=== PATIENT | female | born 1940 | race Caucasian/White ===

== ENCOUNTER 2017-10-30 11:49 | Inpatient (IN) ==
--- NOTE | 2017-10-30 12:21 | Emergency Department Note ---
Disposition Clinical Impression: Atrial fibrillation with rapid ventricular response Disposition: Admitted As Inpatient Condition: Good Referrals: Karthik Pino MD [Primary Care Provider] - Forms: ED Satisfaction Letter Time of Disposition: 14:39 Arrhythmia/Palpitations HPI - General Chief Complaint: ED Arrhythmia/Palpitations Stated Complaint: A-fib & hx of for long -time Time Seen by Provider: 10/30/17 11:56 Source: patient, family () Mode of arrival: ambulatory Limitations: no limitations Nursing Notes Reviewed: Yes Vital Signs Reviewed: Yes - History of Present Illness HPI Narrative: 77-year-old female history of atrial fibrillation on Xarelto presents emergency department with atrial fibrillation with rapid ventricular response. Patient was seen at the pulmonology office Dr. Anaya for evaluation of her COPD. Patient states when she was doing her a 6 minute walk test, the heart rate was elevated and patient was determined to be in atrial fibrillation with rapid ventricular response. Patient was sent here for further evaluation. Patient states over the past several months she is been feeling more short of breath especially on exertion. She does not feel sure breath at rest. She did have her inhalers changed to Symbicort. She recently states being evaluated by her primary care physician Dr. Alvarez bryant her metoprolol was discontinued on Wednesday but was switched to another medication. Believes it could be diltiazem. She denies any fevers, recent illness. Denies any chest pain, heart racing or lightheadedness. States prior to being placed on the Xarelto she used to know when she goes in and out of atrial fibrillation but not recently. Patient does have a history of hypothyroidism after ablation and takes appropriate medication. She gets it checked on a yearly basis. Denies any other changes to medications. Denies any recent injury or false. Denies alcohol use. Denies history of congestive heart failure. Patient's petroleum transport driver was Dr. Holt but has not seen him since he left the practice. Pt Subjective Complaint: atrial fibrillation - Related Data Home Medications Medication Instructions Recorded Confirmed Atorvastatin Calcium [Lipitor] 20 mg PO HS 10/30/17 10/30/17 Budesonide/Formoterol 160/4.5 2 puff IH BIDR 10/30/17 10/30/17 [Symbicort 160/4.5] Citalopram Hydrobromide 20 mg PO DAILY 10/30/17 10/30/17 [Citalopram HBr] Diltiazem CD (24hr) [Cardizem CD] 120 mg PO DAILY 10/30/17 10/30/17 Enalapril Maleate [Vasotec] 20 mg PO BID 10/30/17 10/30/17 Levothyroxine Sodium [Levoxyl] 100 mcg PO DAILY 10/30/17 10/30/17 Rivaroxaban [Xarelto] 15 mg PO DAILY 10/30/17 10/30/17 hydroCHLOROthiazide 25 mg PO DAILY 10/30/17 10/30/17 [Hydrochlorothiazide] Allergies Allergy/AdvReac Type Severity Reaction Status Date / Time No Known Allergies Allergy Verified 10/30/17 11:51 All systems ED: reviewed and negative except as stated. Review of Systems: As Per HPI Constitutional: Denies: fever, chills, weakness Cardiovascular: Reports: dyspnea on exertion. Denies: chest pain, palpitations Respiratory: Reports: dyspnea. Denies: cough Gastrointestinal: Denies: abdominal pain, nausea, vomiting Past Medical History - Past Medical History Attestation: Yes The following information was validated with the patient. Source: patient Medical history: Reports: COPD, hypertension - Social History Smoking Status: Never smoker Smokeless Tobacco Status: No Alcohol use: Reports: none Drug use: Reports: none Physical Exam - General Limitations: no limitations General appearance: alert, in no apparent distress - Head Head exam: atraumatic, normocephalic, normal inspection - Eye Eye exam: Present: normal appearance, PERRL, EOMI. Absent: scleral icterus - ENT ENT exam: normal exam, normal oropharynx, mucous membranes moist - Neck Neck exam: Present: normal inspection, full ROM, trachea midline. Absent: tenderness - Chest Chest inspection: Present: normal inspection, symmetric chest wall rise. Absent : tenderness, rash - Respiratory Respiratory exam: Present: normal lung sounds bilaterally. Absent: respiratory distress, wheezes - Cardiovascular Cardiovascular exam: Present: tachycardia, irregular rhythm, normal heart sounds - Expanded Cardiovascular Exam Peripheral pulses: 2+: radial (R), radial (L) - Abdominal Exam Abdominal exam: Present: soft, Non-Tender, normal bowel sounds. Absent: tenderness, distention, guarding, rebound, rigidity - Extremities Exam Extremities exam: Present: normal inspection, full ROM, normal capillary refill. Absent: tenderness, pedal edema, calf tenderness - Back Exam Back exam: Present: normal inspection, full ROM. Absent: tenderness - Neurological Exam Neurological exam: Present: alert, oriented X3 - Psychiatric Psychiatric exam: Present: normal affect, normal mood - Skin Skin exam: Present: warm, dry, intact, normal color. Absent: rash, cyanosis, diaphoresis Course Course Narrative: Patient presents with history of atrial fibrillation. Was at the pulmonology office and was found to be and atrial fibrillation with rapid ventricular response. EKG confirm that here. Patient denies any other symptoms such as lightheadedness, chest pain, shortness of breath. She does have a history of a thyroid issues. Will check labs in a TSH as well as treatment with Cardizem. - Reevaluation(s) Reevaluation #1: Magnesium was slightly low 1.5. TSH 2.7. Baseline renal insufficiency. No leukocytosis. Patient was given bolus of Cardizem and are heart rate went from 150 down to roughly 80. She remains and atrial fibrillation. Will replete her magnesium and admit her for further evaluation and management. Impression is atrial fibrillation with rapid ventricular response. Patient is are anticoagulated on Xarelto and does not require any additional. INR is 1.7. Time: 14:34 - Consultations Consultation #1: Spoke with on-call hospitalist martine Rodrigez to admit for afib c RVR. No further orders at this time Time: 14:37 Vital Signs Temperature 98.1 F 10/30/17 11:51 Pulse Rate 144 10/30/17 11:51 Respiratory Rate 20 10/30/17 11:51 Blood Pressure 162/108 10/30/17 11:51 O2 Sat by Pulse Oximetry 97 10/30/17 11:51 Temperature 98.1 F 10/30/17 12:24 Pulse Rate 94 10/30/17 14:16 Respiratory Rate 20 10/30/17 14:16 Blood Pressure 179/106 10/30/17 14:16 O2 Sat by Pulse Oximetry 94 10/30/17 14:16 Oxygen Delivery Oxygen Delivery Room Air Arrhythmia/Palpitations - MDM Narrative Medical decision making narrative: Patient was discussed with my attending physician who agrees with ED management and final disposition. They independently evaluated the patient. Please refer to their attestation to this encounter for additional information. This note was generated by Dragon voice recognition software and as a result grammatical or spelling errors may occur using this program. - Medical Records Medical records reviewed: Yes I reviewed the patient's medical records. - Lab Data Lab results reviewed: Yes I reviewed the patient's lab results. Result diagrams: 10/30/17 12:15 10/30/17 12:15 Lab Results 10/30/17 10/30/17 10/30/17 Range/Units 12:15 12:15 12:15 WBC 4.9 (4.3-11.1) K/mcL RBC 4.46 (3.82-4.97) M/mcL Hgb 14.2 (11.5-15.4) g/dL Hct 42.1 (35.3-44.9) % MCV 94.4 (83.0-100.0) fL MCH 31.8 (28.0-33.3) pg MCHC 33.7 (31.6-35.5) g/dL RDW 13.9 (11.5-14.5) % Plt Count 188 (140-400) K/mcL MPV 11.4 (9.4-12.4) fL Immature Gran % 0.2 (0-4) % Seg Neutrophils % 71.5 % Lymphocytes % 17.8 % Monocytes % 7.0 % Eosinophils % 3.3 % Basophils % 0.2 % Neutrophils # 3.5 (1.6-8.9) K/mcL Lymphocytes # 0.9 (0.6-4.6) K/mcL Monocytes # 0.3 (0.0-1.3) K/mcL Eosinophils # 0.2 (0.0-0.6) K/mcL Basophils # 0.0 (0.0-0.2) K/mcL PT 18.4 H (9.4-12.1) Seconds INR 1.7 APTT 40.7 H (26.0-36.0) Seconds Sodium 139 (136-145) mEq/L Potassium 3.9 (3.5-5.1) mEq/L Chloride 102 (98-107) mEq/L Carbon Dioxide 26 (23-29) mEq/L BUN 17 (8-23) mg/dL Creatinine 1.25 H (0.60-1.20) mg/dL Est GFR ( Amer) 50 L (> 60) Est GFR (Non-Af Amer) 41 L (> 60) BUN/Creatinine Ratio 14 (6-26) Glucose 166 H (70-105) mg/dL Calculated Osmolality 293 (280-300) Calcium 9.3 (8.6-10.3) mg/dL Magnesium 1.5 L (1.6-2.6) mg/dL Troponin I < 0.03 (< 0.04) ng/mL TSH 2.758 (0.340-5.600) mcIU/mL Urine Color (Yellow) Urine Clarity (Clear) Urine pH (5.0-8.0) pH Units Ur Specific [place] (1.010-1.025) Urine Protein (Neg-Trace) mg/dL Urine Glucose (UA) (Normal) mg/dL Urine Ketones (Negative) mg/dL Urine Blood (Negative) Urine Nitrite (Negative) Urine Bilirubin (Negative) Urine Urobilinogen (Normal) mg/dL Ur Leukocyte Esterase (Negative) Urine Microscopic RBC (0-3) per hpf Urine Microscopic WBC (0-3) per hpf Ur Squamous Epith Cells (None-Few) per lpf Urine Bacteria (None-Few) per hpf Ur Culture Indicated? (NO) 10/30/17 Range/Units 12:37 WBC (4.3-11.1) K/mcL RBC (3.82-4.97) M/mcL Hgb (11.5-15.4) g/dL Hct (35.3-44.9) % MCV (83.0-100.0) fL MCH (28.0-33.3) pg MCHC (31.6-35.5) g/dL RDW (11.5-14.5) % Plt Count (140-400) K/mcL MPV (9.4-12.4) fL Immature Gran % (0-4) % Seg Neutrophils % % Lymphocytes % % Monocytes % % Eosinophils % % Basophils % % Neutrophils # (1.6-8.9) K/mcL Lymphocytes # (0.6-4.6) K/mcL Monocytes # (0.0-1.3) K/mcL Eosinophils # (0.0-0.6) K/mcL Basophils # (0.0-0.2) K/mcL PT (9.4-12.1) Seconds INR APTT (26.0-36.0) Seconds Sodium (136-145) mEq/L Potassium (3.5-5.1) mEq/L Chloride (98-107) mEq/L Carbon Dioxide (23-29) mEq/L BUN (8-23) mg/dL Creatinine (0.60-1.20) mg/dL Est GFR ( Amer) (> 60) Est GFR (Non-Af Amer) (> 60) BUN/Creatinine Ratio (6-26) Glucose (70-105) mg/dL Calculated Osmolality (280-300) Calcium (8.6-10.3) mg/dL Magnesium (1.6-2.6) mg/dL Troponin I (< 0.04) ng/mL TSH (0.340-5.600) mcIU/mL Urine Color Dark Yellow (Yellow) Urine Clarity Cloudy A (Clear) Urine pH 6.0 (5.0-8.0) pH Units Ur Specific [place] 1.022 (1.010-1.025) Urine Protein 100 H (Neg-Trace) mg/dL Urine Glucose (UA) Normal (Normal) mg/dL Urine Ketones Trace H (Negative) mg/dL Urine Blood Negative (Negative) Urine Nitrite Negative (Negative) Urine Bilirubin Small H (Negative) Urine Urobilinogen Normal (Normal) mg/dL Ur Leukocyte Esterase Moderate H (Negative) Urine Microscopic RBC 0-3 (0-3) per hpf Urine Microscopic WBC TNTC H (0-3) per hpf Ur Squamous Epith Cells Many H (None-Few) per lpf Urine Bacteria None Seen (None-Few) per hpf Ur Culture Indicated? NO. A (NO) - Radiology Data Radiology results reviewed: Yes I reviewed the patient's radiology results. Chest X-Ray 10/30/17 12:05 IMPRESSION: Stable portable study. D/ / Chely Farr Cha, MD / Chely Farr Cha, MD Interpreting Provider: Chely Farr Cha, MD - EKG Data EKG attestation: Yes I reviewed and interpreted this EKG. EKG results narrative: EKG performed 1210 atrial fibrillation with rapid ventricular response 138 beats per minute, no ST elevation or depression. No acute ischemic changes. Attestation Statement - Attestation Attestation: I, Jorge Clement DO, examined this patient [id number] and my medical decision-making was reviewed with Michael Bello DO , Resident Physician. I agree with the documented findings, disposition and treatment plan as described except to the extent set forth below. Please see my progress notes for details.
[2017-10-30 12:24] LABS: Basophils % 0.2 %; Eosinophils # 0.2 K/mcL (0.0-0.6); Eosinophils % 3.3 %; Hematocrit 42.1 % (35.3-44.9); Hemoglobin 14.2 g/dL (11.5-15.4); Immature Granulocytes % 0.2 % (0-4); Lymphocytes # 0.9 K/mcL (0.6-4.6); Lymphocytes % 17.8 %; Mean Corpuscular HGB Conc 33.7 g/dL (31.6-35.5); Mean Corpuscular Hemoglobin 31.8 pg (28.0-33.3); Mean Corpuscular Volume 94.4 fL (83.0-100.0); Mean Platelet Volume 11.4 fL (9.4-12.4); Monocytes # 0.3 K/mcL (0.0-1.3); Neutrophils # 3.5 K/mcL (1.6-8.9); Platelet Count 188 K/mcL (140-400); Red Blood Count 4.46 M/mcL (3.82-4.97); Red Cell Distribution Width 13.9 % (11.5-14.5); Segmented Neutrophils % 71.5 %
[2017-10-30 12:29] LABS: INR 1.7; Prothrombin Time 18.4 Seconds (9.4-12.1)
[2017-10-30 12:32] LABS: Activated Partial Thrombo Time 40.7 Seconds (26.0-36.0)
[2017-10-30 12:57] LABS: Bilirubin,Urine Small (Negative); Blood,Urine Negative (Negative); Clarity,Urine Cloudy (Clear); Color,Urine Dark Yellow (Yellow); Glucose,Urine (UA) Normal (Normal); Ketones,Urine Trace mg/dL (Negative); Leukocyte Esterase,Urine Moderate (Negative); Nitrite,Urine Negative (Negative); Protein,Urine 100 mg/dL (Neg-Trace); Specific Gravity,Urine 1.022 (1.010-1.025); Urobilinogen,Urine Normal (Normal)
[2017-10-30 13:00] LABS: Bacteria,Urine None Seen per hpf (None-Few); Squamous Epithelial Cell,Urine Many per lpf (None-Few); WBC,Urine TNTC per hpf (0-3)
[2017-10-30 13:01] LABS: Blood Urea Nitrogen 17 mg/dL (8-23); Calcium 9.3 mg/dL (8.6-10.3); Chloride 102 mEq/L (98-107); Glucose 166 mg/dL (70-105); Osmolality,Calculated 293 (280-300); Potassium 3.9 mEq/L (3.5-5.1); Sodium 139 mEq/L (136-145); Thyroid Stimulating Hormone 2.758 mcIU/mL (0.340-5.600); Troponin I < 0.03 ng/mL (< 0.04)
[2017-10-30 13:18] LABS: BUN/Creatinine Ratio 14 (6-26); Carbon Dioxide 26 mEq/L (23-29); Magnesium 1.5 mg/dL (1.6-2.6); eGFR For African Americans 50 (> 60); eGFR For Non-African Americans 41 (> 60)
[2017-10-30 13:18] LABS: RBC,Urine 0-3 per hpf (0-3)
--- NOTE | 2017-10-30 14:04 | Emergency Department Note ---
Disposition Clinical Impression: Atrial fibrillation with rapid ventricular response Disposition: Admitted As Inpatient Condition: Good Referrals: Karthik Pino MD [Primary Care Provider] - Forms: ED Satisfaction Letter Time of Disposition: 14:59 General Adult HPI - General Chief complaint: ED Arrhythmia/Palpitations Stated complaint: A-fib & hx of for long -time Time Seen by Provider: 10/30/17 11:56 Source: patient, family () Mode of arrival: ambulatory Limitations: no limitations - History of Present Illness Pain Scale: 0 - Related Data Home Medications Medication Instructions Recorded Confirmed Atorvastatin Calcium [Lipitor] 20 mg PO HS 10/30/17 10/30/17 Budesonide/Formoterol 160/4.5 2 puff IH BIDR 10/30/17 10/30/17 [Symbicort 160/4.5] Citalopram Hydrobromide 20 mg PO DAILY 10/30/17 10/30/17 [Citalopram HBr] Diltiazem CD (24hr) [Cardizem CD] 120 mg PO DAILY 10/30/17 10/30/17 Enalapril Maleate [Vasotec] 20 mg PO BID 10/30/17 10/30/17 Levothyroxine Sodium [Levoxyl] 100 mcg PO DAILY 10/30/17 10/30/17 Rivaroxaban [Xarelto] 15 mg PO DAILY 10/30/17 10/30/17 hydroCHLOROthiazide 25 mg PO DAILY 10/30/17 10/30/17 [Hydrochlorothiazide] Allergies Allergy/AdvReac Type Severity Reaction Status Date / Time No Known Allergies Allergy Verified 10/30/17 11:51 Constitutional: Denies: fever, chills, weakness Cardiovascular: Reports: dyspnea on exertion. Denies: chest pain, palpitations Respiratory: Reports: dyspnea. Denies: cough Gastrointestinal: Denies: abdominal pain, nausea, vomiting Past Medical History - Past Medical History Medical history: Reports: COPD, hypertension Psychiatric history: Reports: no psych history - Social History Smoking Status: Never smoker Smokeless Tobacco Status: No Alcohol use: Reports: none Drug use: Reports: none Physical Exam - General Limitations: no limitations General appearance: alert, in no apparent distress Course Vital Signs Temperature 98.1 F 10/30/17 11:51 Pulse Rate 144 10/30/17 11:51 Respiratory Rate 20 10/30/17 11:51 Blood Pressure 162/108 10/30/17 11:51 O2 Sat by Pulse Oximetry 97 10/30/17 11:51 Temperature 98.1 F 10/30/17 12:24 Pulse Rate 94 10/30/17 14:16 Respiratory Rate 20 10/30/17 14:16 Blood Pressure 179/106 10/30/17 14:16 O2 Sat by Pulse Oximetry 94 10/30/17 14:16 Oxygen Delivery Oxygen Delivery Room Air Medical Decision Making - Lab Data Result diagrams: 10/30/17 12:15 10/30/17 12:15 Lab Results 10/30/17 10/30/17 10/30/17 Range/Units 12:15 12:15 12:15 WBC 4.9 (4.3-11.1) K/mcL RBC 4.46 (3.82-4.97) M/mcL Hgb 14.2 (11.5-15.4) g/dL Hct 42.1 (35.3-44.9) % MCV 94.4 (83.0-100.0) fL MCH 31.8 (28.0-33.3) pg MCHC 33.7 (31.6-35.5) g/dL RDW 13.9 (11.5-14.5) % Plt Count 188 (140-400) K/mcL MPV 11.4 (9.4-12.4) fL Immature Gran % 0.2 (0-4) % Seg Neutrophils % 71.5 % Lymphocytes % 17.8 % Monocytes % 7.0 % Eosinophils % 3.3 % Basophils % 0.2 % Neutrophils # 3.5 (1.6-8.9) K/mcL Lymphocytes # 0.9 (0.6-4.6) K/mcL Monocytes # 0.3 (0.0-1.3) K/mcL Eosinophils # 0.2 (0.0-0.6) K/mcL Basophils # 0.0 (0.0-0.2) K/mcL PT 18.4 H (9.4-12.1) Seconds INR 1.7 APTT 40.7 H (26.0-36.0) Seconds Sodium 139 (136-145) mEq/L Potassium 3.9 (3.5-5.1) mEq/L Chloride 102 (98-107) mEq/L Carbon Dioxide 26 (23-29) mEq/L BUN 17 (8-23) mg/dL Creatinine 1.25 H (0.60-1.20) mg/dL Est GFR ( Amer) 50 L (> 60) Est GFR (Non-Af Amer) 41 L (> 60) BUN/Creatinine Ratio 14 (6-26) Glucose 166 H (70-105) mg/dL Calculated Osmolality 293 (280-300) Calcium 9.3 (8.6-10.3) mg/dL Magnesium 1.5 L (1.6-2.6) mg/dL Troponin I < 0.03 (< 0.04) ng/mL TSH 2.758 (0.340-5.600) mcIU/mL Urine Color (Yellow) Urine Clarity (Clear) Urine pH (5.0-8.0) pH Units Ur Specific [place] (1.010-1.025) Urine Protein (Neg-Trace) mg/dL Urine Glucose (UA) (Normal) mg/dL Urine Ketones (Negative) mg/dL Urine Blood (Negative) Urine Nitrite (Negative) Urine Bilirubin (Negative) Urine Urobilinogen (Normal) mg/dL Ur Leukocyte Esterase (Negative) Urine Microscopic RBC (0-3) per hpf Urine Microscopic WBC (0-3) per hpf Ur Squamous Epith Cells (None-Few) per lpf Urine Bacteria (None-Few) per hpf Ur Culture Indicated? (NO) 10/30/17 Range/Units 12:37 WBC (4.3-11.1) K/mcL RBC (3.82-4.97) M/mcL Hgb (11.5-15.4) g/dL Hct (35.3-44.9) % MCV (83.0-100.0) fL MCH (28.0-33.3) pg MCHC (31.6-35.5) g/dL RDW (11.5-14.5) % Plt Count (140-400) K/mcL MPV (9.4-12.4) fL Immature Gran % (0-4) % Seg Neutrophils % % Lymphocytes % % Monocytes % % Eosinophils % % Basophils % % Neutrophils # (1.6-8.9) K/mcL Lymphocytes # (0.6-4.6) K/mcL Monocytes # (0.0-1.3) K/mcL Eosinophils # (0.0-0.6) K/mcL Basophils # (0.0-0.2) K/mcL PT (9.4-12.1) Seconds INR APTT (26.0-36.0) Seconds Sodium (136-145) mEq/L Potassium (3.5-5.1) mEq/L Chloride (98-107) mEq/L Carbon Dioxide (23-29) mEq/L BUN (8-23) mg/dL Creatinine (0.60-1.20) mg/dL Est GFR ( Amer) (> 60) Est GFR (Non-Af Amer) (> 60) BUN/Creatinine Ratio (6-26) Glucose (70-105) mg/dL Calculated Osmolality (280-300) Calcium (8.6-10.3) mg/dL Magnesium (1.6-2.6) mg/dL Troponin I (< 0.04) ng/mL TSH (0.340-5.600) mcIU/mL Urine Color Dark Yellow (Yellow) Urine Clarity Cloudy A (Clear) Urine pH 6.0 (5.0-8.0) pH Units Ur Specific [place] 1.022 (1.010-1.025) Urine Protein 100 H (Neg-Trace) mg/dL Urine Glucose (UA) Normal (Normal) mg/dL Urine Ketones Trace H (Negative) mg/dL Urine Blood Negative (Negative) Urine Nitrite Negative (Negative) Urine Bilirubin Small H (Negative) Urine Urobilinogen Normal (Normal) mg/dL Ur Leukocyte Esterase Moderate H (Negative) Urine Microscopic RBC 0-3 (0-3) per hpf Urine Microscopic WBC TNTC H (0-3) per hpf Ur Squamous Epith Cells Many H (None-Few) per lpf Urine Bacteria None Seen (None-Few) per hpf Ur Culture Indicated? NO. A (NO) Critical Care Time Critical Care Time: Yes Total Critical Care Time: 35 Attestation: Critical care performed: Time is exclusive of separately billable procedures. Time includes: direct patient care, patient reassessment, coordination of patient care, interpretation of data (laboratory data, radiology data, and respiratory data), review of patient's medical records, medical consultation and documentation of patient care. Procedures included in critical care time: Procedures excluded from critical care time: Attestation Statement - Attestation Attestation: I, Jorge Clement DO, examined this patient [id number] and my medical decision-making was reviewed with Michael Bello DO , Resident Physician. I agree with the documented findings, disposition and treatment plan as described except to the extent set forth below. Please see my progress notes for details. 77-year-old female sent in from pulmonology Center today for evaluation of atrial fibrillation with rapid ventricular response. Patient is a long- standing history of A. fib. She is currently on's relative. She was followed up with by the [facility] and she denies any chest pain shortness of breath headache vision changes nausea vomiting or diarrhea. Denies any fevers or chills trauma or injury. Patient was seen by her primary care provider within the week and had 2 of her medications changed. Since then she has not had any complaints or issues. She went in for evaluation today for a previous diagnosis of COPD and when they went to check her vital signs are heart rate was in the 132 140 bpm range. They advised her to come over the emergency room for evaluation of that time. On presentation here patient is asymptomatic her vital signs are stable outside of the tachycardia. EKG confirms atrial fibrillation with rapid ventricular response. There is no acute signs of ST segment elevation or abnormality. Vital signs are stable. Patient was screening labs including chest x-ray CBC chemistry as well as review the patient's previous echocardiogram from one year ago. She will be started on Cardizem admitted to the hospital. Patient does have Xarelto on board at this time and does not require any further anticoagulation. Patient is otherwise asymptomatic. See detailed documentation of the physical exam, medical intervention, medical decision-making and disposition the resident physician's note. 35 minutes of critical care by the patient's treatment course secondary to medical intervention. Patient's lungs are clear heart is regular and tachycardia abdomen is soft nontender nondistended no guarding or rigidity. Patient has no visible signs of pitting edema or swelling in extremities. She converses without any shortness of breath and shows no neurologic deficits. Admission process to be completed once full workup has been established 1400 Patient's heart rate has responded to the medications. Heart rate is down in the 80s at this time. Labs appear to be stable. Patient does have contaminated urine no antibiotic regimen require this time. Admission process to be completed 1500 Patient acceptable by the hospitals. Magnesium was repleted here. Otherwise workup was unremarkable. Patient is in stable medical condition at the time of admission for atrial fibrillation with rapid ventricular spots. No other recommendations from the hospitalist.
[2017-10-30] MEDS ORDERED: Acetaminophen 325 MG TABLET PO PRN (14:52)
[2017-10-30] MEDS ORDERED: traMADol 50 MG TABLET PO PRN (14:52)
[2017-10-30] MEDS ORDERED: D5% in Water 1,000 ML IVC PRN (14:52)
[2017-10-30] MEDS ORDERED: Naloxone 0.4 MG/ML INJ IVP PRN (14:52)
[2017-10-30] MEDS ORDERED: *HR* Dextrose 50 % in Water (Syg) 50 ML SYRINGE IVP PRN (14:52)
[2017-10-30] MEDS ORDERED: Dextrose Gel 15 GM/37.5 ML TUBE PO PRN ×2 (14:52)
--- NOTE | 2017-10-30 14:59 | Internal Med History&Physical ---
Date of Encounter: 10/30/17 Time of Encounter: 14:56 Internal Medicine - H&P: HPI Chief complaint: Elevated heart rate Admitted From: Emergency Dept History of present illness: Ms. Hancock is a 77 year old female with a past medical history of atrial fibrillation on xarelto, COPD not oxygen dependent, who was recommended by her primary care physician to stop taking metoprolol Wednesday and was started on a new medication possibly diltiazem. Patient was having 6 minute walk test today and she was told that her heart rate was very high in the 150s. At the emergency room she was noticed to be in atrial fibrillation with rapid ventricular response with a heart rate of 156. Patient was completely asymptomatic, mentions that she had acute bronchitis about 3 weeks ago, UA shows too numerous to count white blood cells but has minimal dysuria, creatinine is 1.25 close to her baseline of 1.16, magnesium was 1.5 and was given IV magnesium at the ER. She was given a bolus of IV Cardizem and continued on a drip. Her heart rate is a still in the 110s. Blood pressure was 179/101. Glucose is 166 Past Med Surg Social Fam HX - Past Medical History Medical history: atrial fibrillation (Paroxysmal atrial fibrillation on xarelto) , COPD (Not oxygen dependent), hypertension, other (Hypothyroidism, depression, hypertension, hyperlipidemia, chronic kidney disease stage III) Psychiatric history: no psych history - Past Surgical History Surgical History: other (Tubal ligation) Additional surgical history: tubal ligation - Social History Smoking Status: Former smoker Smokeless Tobacco Status: No Alcohol use: none Drug use: none - Additional Family History Additional family history: Father with CVA Internal Medicine - H&P: Meds Atorvastatin Calcium [Lipitor] 20 mg PO HS 10/30/17 [History] Budesonide/Formoterol 160/4.5 [Symbicort 160/4.5] 2 puff IH BIDR 10/30/17 [ History] Citalopram Hydrobromide [Citalopram HBr] 20 mg PO DAILY 10/30/17 [History] Diltiazem CD (24hr) [Cardizem CD] 120 mg PO DAILY 10/30/17 [History] Enalapril Maleate [Vasotec] 20 mg PO BID 10/30/17 [History] Levothyroxine Sodium [Levoxyl] 100 mcg PO DAILY 10/30/17 [History] Rivaroxaban [Xarelto] 15 mg PO DAILY 10/30/17 [History] hydroCHLOROthiazide [Hydrochlorothiazide] 25 mg PO DAILY 10/30/17 [History] 3 Allergy/AdvReac Type Severity Reaction Status Date / Time No Known Allergies Allergy Verified 10/30/17 11:51 All Systems PM: A 10-system review of systems was performed and is negative for pertinent findings except as documented above in the HPI. Review of systems: Denies any chest pressures or breath, other systems out of the 10 reviewed were negative - Constitutional Vitals: Temp Pulse Resp BP Pulse Ox 98.1 F 94 20 179/106 94 10/30/17 12:24 10/30/17 14:16 10/30/17 14:16 10/30/17 14:16 10/30/17 14:16 General appearance: Present: A&O X 3, morbidly obese - Head Head exam: Present: atraumatic, normocephalic - Eye Eye exam: Present: PERRL, conjuntiva pink, sclera anicteric Pupils: Present: PERRL - Neck Neck exam general surgery: Present: supple, trachea midline. Absent: lymphadenopathy - Respiratory Respiratory exam: Present: decreased breath sounds (Very diminished breath sounds), CTAB. Absent: accessory muscle use, rales, rhonchi, wheezes - Cardiovascular Cardiovascular exam: Present: irregular rhythm, RRR, +S1, +S2, tachycardia. Absent: diastolic murmur, gallop, rubs, systolic murmur - GI/Abdominal GI/Abdominal exam: Present: normal bowel sounds, soft, no peritoneal signs. Absent: distended, tenderness - Extremities Exam Extremities exam: Present: warm, radial pulses palpable and symmetrical. Absent : calf tenderness, cyanotic, pedal edema - Neurological Exam Neurological exam: Present: CN II-XII intact, oriented X3, no focal deficits. Absent: pronater drift, facial droop, speech deficit - Skin Skin exam: Present: dry, intact Internal Med - H&P Results - Labs CBC & Chem 7: 10/30/17 12:15 10/30/17 12:15 Labs: Short CBC 10/30/17 Range/Units 12:15 WBC 4.9 (4.3-11.1) K/mcL Hgb 14.2 (11.5-15.4) g/dL Hct 42.1 (35.3-44.9) % Plt Count 188 (140-400) K/mcL Neutrophils # 3.5 (1.6-8.9) K/mcL BMP 10/30/17 12:15 Sodium 139 Potassium 3.9 Chloride 102 Carbon Dioxide 26 BUN 17 Creatinine 1.25 H Glucose 166 H Calcium 9.3 Cardiac Enzymes 10/30/17 Range/Units 12:15 Troponin I < 0.03 (< 0.04) ng/mL Urine 10/30/17 Range/Units 12:37 Urine Color Dark Yellow (Yellow) Urine Clarity Cloudy A (Clear) Urine pH 6.0 (5.0-8.0) pH Units Ur Specific [place] 1.022 (1.010-1.025) Urine Protein 100 H (Neg-Trace) mg/dL Urine Glucose (UA) Normal (Normal) mg/dL - Impressions ITS Impressions Chest X-Ray 10/30/17 12:05 IMPRESSION: Stable portable study. D/ / Chely Farr Cha, MD / Chely Farr Cha, MD Interpreting Provider: Chely Farr Cha, MD - Assessment and plan (1) Atrial fibrillation with rapid ventricular response Current Visit: Yes Status: Acute Assessment and plan: Atrophic relation with rapid ventricular response possibly triggered by UTI and by switching medications Continue Cardizem drip, confirmed if the patient takes diltiazem and increase the dose in the morning Continue Rocephin Consider cardiology consult if not improving Omeprazole for GI prophylaxis and xarelto for DVT prophylaxis. The patient will be admitted for observation, full code. Time spent on this admission 40 minutes (2) Hyperglycemia Current Visit: Yes Status: Acute Assessment and plan: Sliding scale Check hemoglobin A1c (3) Hypomagnesemia Current Visit: Yes Status: Acute Assessment and plan: Replete and recheck in the morning (4) Hypertension Current Visit: Yes Status: Acute Assessment and plan: Accelerated hypertension Continue enalapril, order hydralazine IV as needed Continue hydrochlorothiazide Qualifiers: Hypertension type: essential hypertension Qualified Code(s): I10 - Essential (primary) hypertension (5) UTI (urinary tract infection) Current Visit: Yes Status: Acute Assessment and plan: Start Rocephin Order culture Qualifiers: Urinary tract infection type: acute cystitis Hematuria presence: without hematuria Qualified Code(s): N30.00 - Acute cystitis without hematuria - Time Spent With Patient Total time spent is greater than 50% in coordination of care (as documented) at patient's floor/unit and/or counseling patient:
[2017-10-30] MEDS: Insulin LISPRO 300 UNITS/3 ML VIAL SQ SCH ×2 (17:53→20:35)
[2017-10-30] MEDS: Magnesium Oxide 400 MG TABLET PO SCH ×2 (18:48→20:34)
[2017-10-30] MEDS: cefTRIAXone 1,000 MG in Water for inj. (sterile) 20 ML 10 ML IVP SCH (18:49)
[2017-10-30] MEDS: Budesonide/Formoterol 160/4.5 MDI IH SCH (22:09)
[2017-10-31] MEDS: Insulin LISPRO 300 UNITS/3 ML VIAL SQ SCH ×4 (08:32→22:03)
[2017-10-31] MEDS: hydroCHLOROthiazide 25 MG TABLET PO SCH (08:33)
[2017-10-31] MEDS: Magnesium Oxide 400 MG TABLET PO SCH ×2 (08:33→22:02)
[2017-10-31] MEDS: Lisinopril 20 MG TABLET PO SCH (08:34)
[2017-10-31] MEDS: cefTRIAXone 1,000 MG in Water for inj. (sterile) 20 ML 10 ML IVP SCH (08:34)
--- NOTE | 2017-10-31 09:07 | Internal Med Progress Note ---
<Nahun Gonzales - Last Filed: 10/31/17 13:14> Date of Encounter: 10/31/17 Time of Encounter: 09:07 - Assessment and plan (1) Atrial fibrillation with rapid ventricular response Current Visit: Yes Status: Acute Assessment and plan: Afib rvr likely due to medication changes. Rate this morning between 100-130s. Continue with Cardizem drip, once controlled will add Cardizem po Resume home med. Metoprolol 25mg bid. Consider switching to Toprol XL 50mg on discharge Xarelto for anticoagulation. (2) Hyperglycemia Current Visit: Yes Status: Acute Assessment and plan: A1C 7.1 Continue with insulin sliding scale (3) Hypomagnesemia Current Visit: Yes Status: Acute Assessment and plan: 1.9 on recheck after replacement. (4) Hypertension Current Visit: Yes Status: Acute Assessment and plan: Bp 140-152/85-94 Has not been taking Toprol XL, will resume beta miesha Continue enalapril home dose and HCTZ hydralazine as needed ordered Qualifiers: Hypertension type: essential hypertension Qualified Code(s): I10 - Essential (primary) hypertension (5) UTI (urinary tract infection) Current Visit: Yes Status: Acute Assessment and plan: UA was cloudy with trace ketones, moderate leukocyte esterase, and tntc wbc. Minimal dysuria. Continue Rocephin d2 Urine culture sent Qualifiers: Urinary tract infection type: acute cystitis Hematuria presence: without hematuria Qualified Code(s): N30.00 - Acute cystitis without hematuria - Time Spent With Patient Total time spent is greater than 50% in coordination of care (as documented) at patient's floor/unit and/or counseling patient: - Subjective Interval history: Ms. Hancock reports feeling a little upset, not angrily, just bummed that she is hospitalized. Patient reports that she thought she was told at her last PCP appt to discontinue her Toprol XL 50mg qd and start Cardizem; however, when she went home she was questioning when reviewing her discharge papers whether she was supposed to continue or discontinue her Toprol. Patient's only symptoms at the time the afib rvr was found was shortness of breath, no chest pain, no palpitations. Shortness of breath improved from admission, but still present for which she was seeing Pulmonology as outpatient. Denies fevers, chills, sweats, headaches , nausea, vomiting, chest pain, palpitations, abdominal pain, changes in bowels or bladder, weakness, loss of sensation, or rash. - Constitutional Vitals: Temp Pulse Resp BP Pulse Ox 97.5 F L 99 16 140/85 97 10/31/17 08:00 10/31/17 08:00 10/31/17 04:00 10/31/17 08:18 10/31/17 08:00 General appearance: Present: A&O X 3, morbidly obese, pleasant, no acute distress, answers questions appropriately - Head Head exam: Present: atraumatic, normal inspection, normocephalic - Eye Eye exam: Present: EOMI, normal appearance - ENT ENT exam: Present: mucous membranes moist, normal exam - Neck Neck exam general surgery: Present: full ROM, normal inspection, supple, trachea midline - Respiratory Respiratory exam: Present: CTAB. Absent: rales, respiratory distress, rhonchi, wheezes - Cardiovascular Cardiovascular exam: Present: irregular rhythm, +S1, +S2. Absent: tachycardia - GI/Abdominal GI/Abdominal exam: Present: normal bowel sounds, soft. Absent: distended, tenderness - Extremities Exam Extremities exam: Present: full ROM, normal inspection, warm, radial pulses palpable and symmetrical. Absent: pedal edema - Neurological Exam Neurological exam: Present: alert, oriented X3, strengths equal and symetr throughout - Skin Skin exam: Present: dry, intact, normal color, warm. Absent: rash Internal Medicine: Result - Labs CBC & Chem 7: 10/30/17 12:15 10/31/17 09:27 - ABG Interpretation ABG results: PT/INR, D-dimer PT 18.4 Seconds (9.4-12.1) H 10/30/17 12:15 Consult Discharge Plan - Plan Referrals: Karthik Pino MD [Primary Care Provider] - <Jeffry Diez - Last Filed: 10/31/17 17:58> Date of Encounter: 10/31/17 - Assessment and plan (1) UTI (urinary tract infection) Current Visit: Yes Status: Acute Qualifiers: Urinary tract infection type: acute cystitis Hematuria presence: without hematuria Qualified Code(s): N30.00 - Acute cystitis without hematuria (2) Atrial fibrillation Current Visit: Yes Status: Acute Qualifiers: Atrial fibrillation type: chronic Qualified Code(s): I48.2 - Chronic atrial fibrillation (3) Atrial fibrillation with rapid ventricular response Current Visit: Yes Status: Acute (4) Hyperglycemia Current Visit: Yes Status: Acute (5) Hypomagnesemia Current Visit: Yes Status: Acute (6) Hypertension Current Visit: Yes Status: Acute Qualifiers: Hypertension type: essential hypertension Qualified Code(s): I10 - Essential (primary) hypertension (7) Morbid obesity with BMI of 40.0-44.9, adult Current Visit: Yes Status: Chronic - Time Spent With Patient Total time spent is greater than 50% in coordination of care (as documented) at patient's floor/unit and/or counseling patient: - Constitutional Vitals: Temp Pulse Resp BP Pulse Ox 98.2 F 57 17 148/88 94 10/31/17 15:12 10/31/17 15:12 10/31/17 15:12 10/31/17 15:12 10/31/17 15:12 Internal Medicine: Result - Labs CBC & Chem 7: 10/30/17 12:15 10/31/17 09:27 - ABG Interpretation ABG results: PT/INR, D-dimer PT 18.4 Seconds (9.4-12.1) H 10/30/17 12:15 - Attending Attestation I examined this patient and my medical decision-making was reviewed with the Resident Physician on 10/31/17. I agree with the documented findings, disposition and treatment plan as described except to the extent set forth below. Ms Hancock is currently admitted for acute rapid a fib. She remains moderate to high risk due to potential for worsening clinical status. Ms Hancock is feeling OK. Heart rate has been up and down. PO meds to be restarted. No CP or SOB. No GI issues. Exam alert Comfortable Mucus membranes dry Heart irreg No wheeze abd soft I/P 1. Chronic a fib - rate control Further diagnoses and plan as above.
[2017-10-31] MEDS: Budesonide/Formoterol 160/4.5 MDI IH SCH ×2 (10:06→20:14)
[2017-10-31 10:18] LABS: Calcium 9.3 mg/dL (8.6-10.3); Magnesium 1.9 mg/dL (1.6-2.6); Potassium 4.1 mEq/L (3.5-5.1)
[2017-10-31 10:49] LABS: Estimated Average Glucose 157 mg/dl; Hemoglobin A1C 7.1 %
[2017-10-31] MEDS ORDERED: *HR* Rivaroxaban 15 MG TABLET PO SCH (18:00)
[2017-11-01 04:48] LABS: Calcium 8.9 mg/dL (8.6-10.3); Potassium 4.2 mEq/L (3.5-5.1)
[2017-11-01] MEDS: Budesonide/Formoterol 160/4.5 MDI IH SCH (08:30)
--- NOTE | 2017-11-01 08:47 | Discharge Summary ---
- NOTES TO OUTPATIENT PROVIDER Notes to Outpatient Provider: Pt admitted with rapid a fib. Had started Cardizem but thought she was to stop Metoprolol. Rate now controlled on both meds. Date of Encounter: 11/01/17 Time of Encounter: 08:30 - Discharge Diagnosis (1) UTI (urinary tract infection) Priority: Primary Status: Resolved Assessment and Plan: UA was cloudy with trace ketones, moderate leukocyte esterase, and tntc wbc. Minimal dysuria. Has had 3 days of IV abx. Culture negative. No further abx. Qualifiers: Urinary tract infection type: acute cystitis Hematuria presence: without hematuria Qualified Code(s): N30.00 - Acute cystitis without hematuria (2) Atrial fibrillation Priority: Secondary Status: Chronic Assessment and Plan: Continue current meds at discharge Qualifiers: Atrial fibrillation type: chronic Qualified Code(s): I48.2 - Chronic atrial fibrillation (3) Hyperglycemia Priority: Secondary Status: Chronic Assessment and Plan: A1C 7.1 Will need follow up as outpatient. (4) Hypomagnesemia Priority: Secondary Status: Resolved (5) Hypertension Priority: Secondary Status: Chronic Qualifiers: Hypertension type: essential hypertension Qualified Code(s): I10 - Essential (primary) hypertension (6) Morbid obesity with BMI of 40.0-44.9, adult Priority: Secondary Status: Chronic Hospital course: Ms. Hancock is a 77 year old female with hx of HTN and a fib presented to ED with rapid heart rate. She was found to be in rapid a fib and admitted. Ms Hancock was admitted to [facility]. She had stopped her home Metoprolol and this med was restarted. She initially was on a Cardizem drip and she was converted to PO Cardizem. Her magnesium was replaced. Her blood sugar was elevated and HgbA1C is 7/1%. She will need further outpatient treatment. Today she is afebrile. He heart rate is controlled on current regimen. She feels ready for discharge home. Discharge discussed with: patient - Time Spent with Patient Total time spent providing and/or coordinating discharge services: 38min - Discharge Medications Prescriptions: Magnesium Oxide [Mag-Ox] 400 mg PO BID #60 tablet Metoprolol [Lopressor] 25 mg PO BID #60 tablet Home Medications: Atorvastatin Calcium [Lipitor] 20 mg PO HS 10/30/17 [History] Budesonide/Formoterol 160/4.5 [Symbicort 160/4.5] 2 puff IH BIDR 10/30/17 [ History] Citalopram Hydrobromide [Citalopram HBr] 20 mg PO DAILY 10/30/17 [History] Diltiazem CD (24hr) [Cardizem CD] 120 mg PO DAILY 10/30/17 [History] Enalapril Maleate [Vasotec] 20 mg PO BID 10/30/17 [History] Levothyroxine Sodium [Levoxyl] 100 mcg PO DAILY 10/30/17 [History] Rivaroxaban [Xarelto] 15 mg PO DAILY 10/30/17 [History] hydroCHLOROthiazide [Hydrochlorothiazide] 25 mg PO DAILY 10/30/17 [History] Magnesium Oxide [Mag-Ox] 400 mg PO BID #60 tablet 11/01/17 [Rx] Metoprolol [Lopressor] 25 mg PO BID #60 tablet 11/01/17 [Rx] Allergies/Adverse Reactions: 3 Allergy/AdvReac Type Severity Reaction Status Date / Time No Known Allergies Allergy Verified 10/30/17 11:51 Date of admission: 10/31/17 15:14 Primary care physician: Karthik Pino MD Discharging clinician: Jeffry Diez Anticipated date of discharge: 11/01/17 - Constitutional Vitals: Temp Pulse Resp BP Pulse Ox 98 F 91 16 152/82 94 11/01/17 07:12 11/01/17 07:12 11/01/17 07:12 11/01/17 07:12 11/01/17 07:12 General appearance: Present: A&O X 3, pleasant, answers questions appropriately - Head Head exam: Present: atraumatic, normocephalic - Eye Eye exam: Present: EOMI, normal appearance, conjuntiva pink - ENT ENT exam: Present: mucous membranes moist - Respiratory Respiratory exam: Present: CTAB. Absent: rales, rhonchi, wheezes, tachypnea - Cardiovascular Cardiovascular exam: Present: irregular rhythm. Absent: bradycardia, tachycardia - GI/Abdominal GI/Abdominal exam: Present: normal bowel sounds, soft. Absent: tenderness - Extremities Exam Extremities exam: Present: warm. Absent: tenderness - Neurological Exam Neurological exam: Present: alert, oriented X3, no focal deficits - Skin Skin exam: Present: dry, warm - Patient Status Disposition: Home, Self-Care Condition: Good Functional capacity at discharge: independent ambulation Overall status at discharge: patient is progressing back to baseline - Discharge Instructions Follow Up With: Karthik Pino MD [Primary Care Provider] - (Follow up in 1 week.) - Diet and Activity Activity: increase activity as tolerated Diet: advance to your usual diet
[2017-11-01] MEDS: Insulin LISPRO 300 UNITS/3 ML VIAL SQ SCH (10:46)
[2017-11-01] MEDS: cefTRIAXone 1,000 MG in Water for inj. (sterile) 20 ML 10 ML IVP SCH (10:50)
[2017-11-01] MEDS: Lisinopril 20 MG TABLET PO SCH (10:50)
[2017-11-01] MEDS: hydroCHLOROthiazide 25 MG TABLET PO SCH (10:50)
[2017-11-01] MEDS: Magnesium Oxide 400 MG TABLET PO SCH (10:50)
[2017-11-01 11:20] VITALS: BP 165/90
--- NOTE | 2017-11-02 16:08 | Electrocardiograph Report ---
[address] [place] [address] Test Date: 2017-10-30 Pat Name: Maggie Hancock Department: 102 Room: [id number] Gender: F [employer] Log[employer] Manager: Nuzhat : 1940 Requested By: Jorge Clement Order Number: [id number] Reading MD: Eloy Isaacs Measurements Intervals [place] Rate: 138 P: [place]: 0 QRS: -13 QRSD: 113 T: 89 QT: 318 QTc: 399 Interpretive Statements ATRIAL FIBRILLATION WITH RAPID VENTRICULAR RESPONSE Electronically Signed On 11-02-2017 16:06:39 EDT by Eloy Isaacs
== END 2017-11-01 12:05 | disposition home or self-care (01) | DRG 309 ==
LOC: 2NENU 11:49 → EMEROO 11:49 → SUATTDRO 16:40 → 2NENU 17:09
PROVIDERS: ADMIT Internal Medicine; ATTEND Internal Medicine

== ENCOUNTER 2022-03-05 15:32 | Observation (INO) ==
[2022-03-05 17:58] LABS: Eosinophils % 1.9 %; Red Cell Distribution Width 19.9 % (11.5-14.5)
[2022-03-05 18:00] LABS: Basophils # 0.1 K/mcL (0.0-0.2); Basophils % 0.8 %; Eosinophils # 0.2 K/mcL (0.0-0.6); Hematocrit 24.6 % (35.3-44.9); Hemoglobin 6.8 g/dL (11.5-15.4); Immature Granulocytes % 0.4 % (0-4); Lymphocytes # 1.1 K/mcL (0.6-4.6); Lymphocytes % 13.2 %; Mean Corpuscular HGB Conc 27.6 g/dL (31.6-35.5); Mean Corpuscular Hemoglobin 19.7 pg (28.0-33.3); Mean Corpuscular Volume 71.1 fL (83.0-100.0); Monocytes # 0.6 K/mcL (0.0-1.3); Platelet Count 454 K/mcL (140-400); Red Blood Count 3.46 M/mcL (3.82-4.97); Segmented Neutrophils % 76.7 %; White Blood Count 8.4 K/mcL (4.3-11.1)
[2022-03-05 18:03] LABS: INR 1.7; Prothrombin Time 19.4 Seconds (9.4-12.1)
[2022-03-05 18:10] LABS: Neutrophils # 6.4 K/mcL (1.6-8.9)
[2022-03-05 18:16] LABS: Potassium 3.5 mEq/L (3.5-5.1)
[2022-03-05] MEDS ORDERED: Pantoprazole 40 MG VIAL IVP ONE ×4 (18:19→21:30)
[2022-03-05 18:47] LABS: Hypochromasia Present (Not Present); Large Platelets Present (Not Present); Platelet Estimate Normal (Normal)
[2022-03-05 19:02] LABS: Bilirubin,Urine Negative (Negative); Blood,Urine Negative (Negative); Clarity,Urine Turbid (Clear); Color,Urine Yellow (Yellow); Glucose,Urine (UA) Normal (Normal); Hyaline Casts,Urine Moderate per lpf (None Seen); Ketones,Urine Trace mg/dL (Negative); Leukocyte Esterase,Urine Large (Negative); Mucus,Urine Few per lpf (None-Few); Nitrite,Urine Negative (Negative); PH,Urine 5.5 pH Units (5.0-8.0); Protein,Urine 30 mg/dL (Neg-Trace); Specific Gravity,Urine 1.026 (1.010-1.025); Squamous Epithelial Cell,Urine Few per hpf (None-Few); Transitional Epi Cells,Urine Few per hpf (None-Few); WBC,Urine TNTC per hpf (0-3)
[2022-03-05] MEDS ORDERED: 0.9 % Sodium Chloride 500 ML ONE (19:15)
[2022-03-05] MEDS ORDERED: cephALEXin 500 MG CAPSULE PO ONE (19:33)
[2022-03-05] MEDS ORDERED: Ondansetron 4 MG/2 ML VIAL IVP PRN (20:00)
[2022-03-05] MEDS ORDERED: Naloxone 0.4 MG/ML INJ IVP PRN (20:00)
[2022-03-05] MEDS ORDERED: Acetaminophen 325 MG TABLET PO PRN (20:00)
[2022-03-05] MEDS: Budesonide/Formoterol 160/4.5 1 PUFF INH IH SCH (23:38)
[2022-03-06 03:43] LABS: % Iron Saturation 6 % (15-50); Alanine Aminotransferase 8 Units/L (7-52); Albumin 3.3 g/dL (3.5-5.7); Albumin/Globulin Ratio 1.1 (1.1-2.2); Alkaline Phosphatase 54 Units/L (34-104); Aspartate Amino Transferase 12 Units/L (13-39); BUN/Creatinine Ratio 29 (6-26); Bilirubin,Direct 0.1 mg/dL (0.0-0.2); Bilirubin,Indirect 0.5 mg/dL (0.0-1.0); Bilirubin,Total 0.6 mg/dL (0.3-1.0); Blood Urea Nitrogen 37 mg/dL (8-23); Calcium 9.4 mg/dL (8.6-10.3); Carbon Dioxide 27 mEq/L (23-29); Chloride 105 mEq/L (98-107); Glucose 114 mg/dL (70-105); Iron 26 mcg/dL (50-170); Magnesium 1.7 mg/dL (1.6-2.6); Osmolality,Calculated 298 (280-300); Potassium 3.4 mEq/L (3.5-5.1); Sodium 139 mEq/L (136-145); Total Protein 6.3 g/dL (6.4-8.9); Transferrin 301 mg/dL (203-362)
[2022-03-06 03:48] LABS: Basophils # 0.1 K/mcL (0.0-0.2); Basophils % 0.7 %; Eosinophils # 0.3 K/mcL (0.0-0.6); Eosinophils % 3.5 %; Hemoglobin 7.3 g/dL (11.5-15.4); Immature Granulocytes % 0.3 % (0-4); Lymphocytes # 1.1 K/mcL (0.6-4.6); Lymphocytes % 14.9 %; Mean Corpuscular HGB Conc 29.2 g/dL (31.6-35.5); Mean Corpuscular Hemoglobin 21.1 pg (28.0-33.3); Mean Corpuscular Volume 72.3 fL (83.0-100.0); Mean Platelet Volume 10.1 fL (9.4-12.4); Monocytes # 0.6 K/mcL (0.0-1.3); Monocytes % 7.3 %; Neutrophils # 5.5 K/mcL (1.6-8.9); Platelet Count 382 K/mcL (140-400); Red Blood Count 3.46 M/mcL (3.82-4.97); Red Cell Distribution Width 20.4 % (11.5-14.5); Segmented Neutrophils % 73.3 %; White Blood Count 7.5 K/mcL (4.3-11.1)
[2022-03-06 03:51] LABS: INR 1.5; Prothrombin Time 16.2 Seconds (9.4-12.1)
[2022-03-06 03:56] LABS: Thyroid Stimulating Hormone 0.123 mcIU/mL (0.340-5.600)
[2022-03-06 04:04] LABS: Ferritin < 8 ng/mL (10-120)
[2022-03-06 04:11] LABS: Folate > 22.3 ng/mL (3.0-16.0); Vitamin B12 323 pg/mL (250-1100)
[2022-03-06] MEDS: Pantoprazole 40 MG VIAL IVP SCH ×2 (05:25→18:36)
[2022-03-06] MEDS: DilTIAZem CD (24hr) 120 MG CAP.ER.24H PO SCH ×2 (07:36→11:22)
[2022-03-06] MEDS: hydroCHLOROthiazide 25 MG TABLET PO SCH ×2 (07:36→11:22)
[2022-03-06] MEDS: lisinopriL 20 MG TABLET PO SCH ×3 (07:36→20:31)
[2022-03-06] MEDS: Budesonide/Formoterol 160/4.5 1 PUFF INH IH SCH ×2 (07:40→22:08)
[2022-03-06] MEDS: cefTRIAXone 1,000 MG in 0.9 % Sodium Chloride Mini Bag 100 ML IVPB SCH (08:12)
[2022-03-06] MEDS ORDERED: NON-FORMULARY MEDICATION 1 EACH EACH (Budesonide/Glycopyr/Formoterol [Breztri Aerosphere I PO SCH (09:00)
[2022-03-06 10:43] LABS: Hematocrit 25.9 % (35.3-44.9); Hemoglobin 7.6 g/dL (11.5-15.4)
[2022-03-06 17:23] LABS: Hematocrit 26.2 % (35.3-44.9); Hemoglobin 7.7 g/dL (11.5-15.4)
[2022-03-07] MEDS: Pantoprazole 40 MG VIAL IVP SCH ×2 (05:40→19:42)
[2022-03-07 05:55] LABS: Basophils # 0.1 K/mcL (0.0-0.2); Basophils % 0.9 %; Eosinophils # 0.4 K/mcL (0.0-0.6); Eosinophils % 5.7 %; Hematocrit 26.8 % (35.3-44.9); Hemoglobin 7.8 g/dL (11.5-15.4); Immature Granulocytes % 0.2 % (0-4); Mean Corpuscular HGB Conc 29.1 g/dL (31.6-35.5); Mean Corpuscular Hemoglobin 21.2 pg (28.0-33.3); Mean Corpuscular Volume 72.8 fL (83.0-100.0); Monocytes # 0.5 K/mcL (0.0-1.3); Monocytes % 8.3 %; Neutrophils # 4.6 K/mcL (1.6-8.9); Platelet Count 375 K/mcL (140-400); Red Blood Count 3.68 M/mcL (3.82-4.97); Red Cell Distribution Width 20.7 % (11.5-14.5); Segmented Neutrophils % 69.9 %; White Blood Count 6.5 K/mcL (4.3-11.1)
[2022-03-07 06:16] LABS: Calcium 9.3 mg/dL (8.6-10.3); Potassium 3.7 mEq/L (3.5-5.1)
[2022-03-07] MEDS: Budesonide/Formoterol 160/4.5 1 PUFF INH IH SCH ×2 (07:32→20:06)
[2022-03-07] MEDS: cefTRIAXone 1,000 MG in 0.9 % Sodium Chloride Mini Bag 100 ML IVPB SCH (09:24)
[2022-03-07] MEDS: lisinopriL 20 MG TABLET PO SCH ×2 (09:24→19:43)
[2022-03-07] MEDS: hydroCHLOROthiazide 25 MG TABLET PO SCH (09:24)
[2022-03-07] MEDS: DilTIAZem CD (24hr) 120 MG CAP.ER.24H PO SCH (09:24)
[2022-03-07] MEDS ORDERED: Lidocaine -MPF 2% 2 ML VIAL ONE (10:21)
[2022-03-07] MEDS ORDERED: *HR* Propofol 200 MG/20 ML VIAL IVP ONE (10:21)
[2022-03-07] MEDS: *HR* Rivaroxaban 15 MG TABLET PO SCH (14:48)
[2022-03-08 02:06] LABS: Hematocrit 26.5 % (35.3-44.9); Hemoglobin 7.7 g/dL (11.5-15.4)
[2022-03-08] MEDS: Pantoprazole 40 MG VIAL IVP SCH (06:09)
[2022-03-08 07:55] VITALS: TEMP 97.9
[2022-03-08] MEDS: cefTRIAXone 1,000 MG in 0.9 % Sodium Chloride Mini Bag 100 ML IVPB SCH (08:13)
[2022-03-08] MEDS: hydroCHLOROthiazide 25 MG TABLET PO SCH (08:16)
[2022-03-08] MEDS: lisinopriL 20 MG TABLET PO SCH (08:17)
[2022-03-08] MEDS: *HR* Rivaroxaban 15 MG TABLET PO SCH (08:17)
[2022-03-08] MEDS: DilTIAZem CD (24hr) 120 MG CAP.ER.24H PO SCH (08:17)
[2022-03-08] MEDS ORDERED: Ipratropium/Albuterol Neb 3 ML IH SCH (10:00)
[2022-03-08] MEDS: Budesonide/Formoterol 160/4.5 1 PUFF INH IH SCH (10:31)
[2022-03-08 11:29] VITALS: BP 104/62; PULSE 71; O2SAT 97
== END 2022-03-08 12:10 | disposition home or self-care (01) ==
LOC: EMEROOARM 15:32 → 3ANU 15:32 → SUATTDRO 19:51 → 3ANU 20:20
PROVIDERS: ADMIT Internal Medicine; ATTEND Family Medicine